=== PATIENT | female | born 2000 | race African-American/Black ===

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

== ENCOUNTER 2019-01-20 10:18 | Emergency (ER) | payer OTHER ==
[2019-01-20] MEDS ORDERED: Dexamethasone 4 mg/ml Vial ONE (11:45)
[2019-01-20] MEDS ORDERED: Dexamethasone 4 MG TAB ONE (11:46)
== END 2019-01-20 16:49 | disposition home or self-care (01) ==
LOC: ERS 10:18
DX: J02.9 Acute pharyngitis, unspecified (principal)
CPT/HCPCS: 87081; 87430; 99283; J1100; J8540

== ENCOUNTER 2022-11-29 11:56 | Emergency (ER) | payer OTHER ==
[2022-11-29] MEDS ORDERED: Ketorolac Tromethamine 30 MG/ML VIAL ONE (15:18)
[2022-11-29] MEDS ORDERED: Acetaminophen 500 MG TAB ONE (15:18)
== END 2022-11-29 15:55 | disposition home or self-care (01) ==
LOC: ERS 11:56
DX: S82.62XA Displaced fracture of lateral malleolus of left fibula, initial encounter for closed fracture (principal); F17.210 Nicotine dependence, cigarettes, uncomplicated; Y93.51 Activity, roller skating (inline) and skateboarding
CPT/HCPCS: 96372; J1885

== ENCOUNTER 2024-07-15 12:49 | Outpatient (CLI) | payer OTHER | END 2024-07-15 12:50 | disposition home or self-care (01) | LOC: BICULT 12:49 | DX: Z34.82 Encounter for supervision of other normal pregnancy, second trimester (principal); Z3A.21 21 weeks gestation of pregnancy | CPT/HCPCS: 76805 ==